=== PATIENT | female | born 1940 ===

== ENCOUNTER 2022-05-15 20:20 | Emergency (ER) | payer MEDICARE, OTHER, MEDICAID ==
[2022-05-15] MEDS ORDERED: Nitrofurantoin Monohydrate/Macrocrystalline 100 MG Cap ONE (21:00)
[2022-05-15 21:06] LABS: ESTIMATED GFR 58 mL/min (>60)
[2022-05-15] MEDS ORDERED: Acetaminophen 325 MG Tab PO ONE (21:22)
[2022-05-15] MEDS ORDERED: Nitrofurantoin Monohydrate/Macrocrystalline 100 MG Cap PO ONE (21:27)
[2022-05-15] MEDS ORDERED: cefTRIAXone 1 GM Vial ONE (21:48)
== END 2022-05-15 22:00 | disposition home or self-care (01) ==
LOC: LB.ED 20:20
DX: N30.00 Acute cystitis without hematuria (principal); Z88.1 Allergy status to other antibiotic agents; Z88.0 Allergy status to penicillin; Z88.2 Allergy status to sulfonamides
CPT/HCPCS: 36415; 80053; 81001; 85025; 87086; 99282; 99284; A9270-GY

== ENCOUNTER 2022-07-13 11:13 | Emergency (ER) | payer MEDICARE, OTHER, MEDICAID ==
[2022-07-13 12:37] LABS: ESTIMATED GFR 58 mL/min (>60)
[2022-07-13] MEDS ORDERED: Simethicone 80 MG Tab.Chew PO ONE (13:05)
[2022-07-13] MEDS ORDERED: Simethicone 80 MG Tab.Chew ONE (13:10)
[2022-07-13] MEDS ORDERED: traMADol 50 MG Tab PO ONE (13:11)
[2022-07-13] MEDS ORDERED: traMADol 50 MG Tab ONE (13:23)
[2022-07-13 14:00] VITALS: BP 137/67; PULSE 80
== END 2022-07-13 13:25 ==
LOC: MERGE 11:13 → LB.ED 11:13
DX: R10.30 Lower abdominal pain, unspecified (principal); M54.50 Low back pain, unspecified; F03.90 Unspecified dementia, unspecified severity, without behavioral disturbance, psychotic disturbance, mood disturbance, and anxiety; Z88.1 Allergy status to other antibiotic agents; Z88.5 Allergy status to narcotic agent; Z88.0 Allergy status to penicillin; Z88.2 Allergy status to sulfonamides; Z79.82 Long term (current) use of aspirin; Z79.899 Other long term (current) drug therapy
CPT/HCPCS: 36415; 80053; 81003; 83735; 85025; 99283; A9270

== ENCOUNTER 2022-09-18 09:31 | Emergency (ER) | payer MEDICARE, OTHER, MEDICAID ==
[2022-09-18 10:25] LABS: ESTIMATED GFR 56 mL/min (>60); TROPONIN I HIGH SENSITIVITY 10.8 pg/ml (<=60.4)
[2022-09-18] MEDS ORDERED: Potassium Chloride 10 MEQ Tab.ER ONE (11:00)
[2022-09-18] MEDS ORDERED: Nitrofurantoin Macrocrystal 50 MG Cap ONE (11:00)
== END 2022-09-18 11:35 | disposition home or self-care (01) ==
LOC: LB.ED 09:31
DX: E87.6 Hypokalemia (principal); N30.00 Acute cystitis without hematuria; E78.00 Pure hypercholesterolemia, unspecified; I10 Essential (primary) hypertension; Z88.1 Allergy status to other antibiotic agents; Z88.5 Allergy status to narcotic agent; Z88.0 Allergy status to penicillin; Z88.2 Allergy status to sulfonamides; Z79.899 Other long term (current) drug therapy; Z79.82 Long term (current) use of aspirin; Z87.891 Personal history of nicotine dependence; W19.XXXA Unspecified fall, initial encounter
CPT/HCPCS: 36415; 70450; 80053; 81001; 84484; 85025; 87086; 93005; 99284; A9270

== ENCOUNTER 2022-11-07 16:00 | Emergency (ER) | payer MEDICARE, OTHER, MEDICAID ==
[2022-11-07] MEDS ORDERED: Morphine 4 MG/ML VIAL IVPUSH ONE (16:50)
[2022-11-07] MEDS ORDERED: LORazepam 2 MG/ML SDV IVPUSH ONE (16:51)
[2022-11-07] MEDS ORDERED: Sodium Chloride 0.9% 30 ML IV ONE (16:54)
[2022-11-07] MEDS ORDERED: Sodium Chloride 0.9% 10 ML Syringe FLUSH ONE (16:54)
[2022-11-07] MEDS ORDERED: Iopamidol 612 MG/ML 100 ML Bottle IV SCH (17:00)
[2022-11-07] MEDS ORDERED: Morphine 4 MG/ML VIAL ONE (17:13)
[2022-11-07] MEDS ORDERED: LORazepam 2 MG/ML SDV ONE (17:13)
[2022-11-07] MEDS ORDERED: Sodium Chloride 0.9% 1,000 ML IV SCH (17:30)
[2022-11-07] MEDS ORDERED: Sulfamethoxazole/Trimethoprim 800-160 MG Tab ONE ×2 (19:00→19:23)
[2022-11-07] MEDS ORDERED: Sulfamethoxazole/Trimethoprim 800-160 MG Tab PO ONE (19:08)
== END 2022-11-07 19:30 | disposition home or self-care (01) ==
LOC: LB.ED 16:00
DX: N30.00 Acute cystitis without hematuria (principal); E78.00 Pure hypercholesterolemia, unspecified; I10 Essential (primary) hypertension; K21.9 Gastro-esophageal reflux disease without esophagitis; E03.9 Hypothyroidism, unspecified; Z86.73 Personal history of transient ischemic attack (TIA), and cerebral infarction without residual deficits; Z88.1 Allergy status to other antibiotic agents; Z88.0 Allergy status to penicillin; Z88.2 Allergy status to sulfonamides; Z88.5 Allergy status to narcotic agent; Z79.899 Other long term (current) drug therapy; Z79.82 Long term (current) use of aspirin
CPT/HCPCS: 36415; 74177; 80053; 81001; 83690; 85025; 87086; 96361; 96374; 96375; 99284-25; A9270-GY; J2060; J2270; J3490; J7030